=== PATIENT | female | born 1980 | race African-American/Black ===

== ENCOUNTER 2018-08-27 21:06 | Emergency (ER) | payer OTHER ==
[~2018-08-27] VITALS: Ht 170.2 cm; Wt 129.3 kg
[2018-08-27 21:39] LABS: URINE BILIRUBIN NEGATIVE (Negative); URINE BLOOD NEGATIVE (Negative); URINE CLARITY CLEAR; URINE COLOR YELLOW; URINE GLUCOSE-RANDOM* TRACE (Negative); URINE KETONES NEGATIVE (Negative); URINE LEUKOCYTES-REFLEX NEGATIVE (Negative); URINE NITRITE-REFLEX NEGATIVE (Negative); URINE PROTEIN (DIPSTICK) 1+ (Negative); URINE SPECIFIC GRAVITY 1.015 (1.005-1.035); URINE UROBILINOGEN 0.2 E.U./dl (0.2-1.0)
[2018-08-27 21:47] LABS: AMP/METHAMP Negative (Negative); BARBITURATES Negative (Negative); BENZODIAZEPINES Negative (Negative); COCAINE Negative (Negative); METHADONE Negative (Negative); OPIATES Negative (Negative); PCP POSITIVE (Negative)
[2018-08-27 21:47] LABS: ABSOLUTE NEUTROPHILS 6.8 thou/uL (1.4-8.2); BASOPHILS 0.8 % (0.0-2.0); EOSINOPHILS 2.3 % (0.0-3.0); HEMATOCRIT 42.4 % (37.0-47.0); HEMOGLOBIN 13.9 gm/dL (12.0-15.0); LYMPHOCYTES 26.1 % (24.0-44.0); MCH 26.9 pg (26.0-34.0); MCHC 32.8 g/dL (28.0-37.0); MCV 82.1 fL (80.0-100.0); PLATELET COUNT 472 thou/uL (150-400); POLYS 65.8 % (36.0-66.0); RBC 5.16 mil/uL (4.20-5.00); RDW 14.2 % (10.5-14.5); WBC 10.4 thou/uL (4.0-11.0)
[2018-08-27 21:56] LABS: ANION GAP 7 mmol/L (7-16); BUN 11 mg/dL (7-18); CALCIUM 9.6 mg/dL (8.5-10.1); CHLORIDE 103 mmol/L (98-107); CO2 30 mmol/L (21-32); CREATININE 1.2 mg/dL (0.6-1.0); GLUCOSE 102 mg/dL (74-106); POTASSIUM 3.4 mmol/L (3.5-5.1); SODIUM 140 mmol/L (136-145)
[2018-08-27 22:03] LABS: CASTS None Seen /LPF (None Seen); MUCUS None Seen strn/LPF (None Seen); SQUAMOUS 0-3 Few /LPF (0-3); TRANSITIONAL EPITHEL CELL 0-3 Few /LPF (None Seen); URINE WBC-REFLEX 0-5 Rare /HPF (0-5)
[2018-08-27 22:04] LABS: BACTERIA-REFLEX 1-9 Few /HPF (None Seen); CRYSTALS None Seen /LPF (None Seen); URINE RBC 0-2 Rare /HPF (0-2)
[2018-08-27] MEDS ORDERED: HYDROCHLOROTHIA25 M2 PO (22:05)
[2018-08-27] MEDS ORDERED: CLARITIN10 MG PO (22:05)
[2018-08-27] MEDS ORDERED: ESCITALOPRAM OX10 MG PO (22:05)
[2018-08-27] MEDS ORDERED: LOSARTAN POTAS100 MG PO (22:05)
[2018-08-27 22:06] LABS: MAGNESIUM 1.6 mg/dL (1.8-2.4); SGOT 21 U/L (15-37); SGPT 25 U/L (30-65); TOTAL BILIRUBIN 0.2 mg/dL (<0.1-1.0); TROPONIN-I <0.06 ng/mL (<0.06)
[2018-08-27] MEDS ORDERED: OLANZAPINE15 MG PO (22:06)
[2018-08-27] MEDS ORDERED: METHYLPHENIDATE10 M2 PO (22:07)
[2018-08-27 22:59] VITALS: BP 120/81
--- NOTE | 2018-08-28 10:31 | EKG ---
[place] [address] [employer] [facility] [place] [address] ELECTROCARDIOGRAM REPORT Name: JOVANNY WELSH Room #: [facility]P [facility]#: [id number] ������������������ Admission: 08/27/18 ������������������ Attend Phys: Discharge: 08/27/18 ������������������ Date of : 78 Report #: [id number] ����������������������������������������������������������������� [id number] THIS REPORT FOR: //name// [facility] ED Test Date: 2018-08-27 Test Time: 21:18:03 Pat Name: JOVANNY WELSH Department: Room: Gender: F [employer] Media Marketer: ALEXANDRE : 1980 Requested By: Lexa Soto Order Number: [id number] MD: Lake Rodriguez Measurements Intervals [place] Rate: 102 P: 68 VA: 161 QRS: 61 QRSD: 113 T: 14 QT: 368 QTc: 480 Interpretive Statements Sinus tachycardia Nonspecific ST and T wave abnormality Borderline prolonged QT interval No previous ECG available for comparison Electronically Signed On 08-28-2018 10:31:03 CDT by Lake Rodriguez [email or web address] ��������������������������������������������� <ELECTRONICALLY SIGNED> ���������������������������������������� By: Lake Rodriguez MD, [facility] ��������������������������������������������� 08/28/18 1031 2118 2118 Lake Rodriguez MD, FACC /EPI
== END 2018-08-27 23:00 | disposition home or self-care (01) ==
LOC: ER 21:06
PROVIDERS: Emergency Medicine
DX: I47.1 Supraventricular tachycardia (principal); I10 Essential (primary) hypertension; G47.419 Narcolepsy without cataplexy; F16.10 Hallucinogen abuse, uncomplicated; F17.210 Nicotine dependence, cigarettes, uncomplicated; Z88.1 Allergy status to other antibiotic agents